=== PATIENT | female | born 1955 | race Caucasian/White ===

== ENCOUNTER 2024-07-24 21:50 | Emergency (ER) | payer OTHER ==
[~2024-07-24] VITALS: Ht 162.6 cm; Wt 68.0 kg
[2024-07-24 21:51] VITALS: TEMP 98.3
[2024-07-24] MEDS ORDERED: PANTOPRAZOLE 40 MG VIAL ONE (22:45)
[2024-07-24] MEDS: IV NS 0.9% 1,000 ML BAG IV ONE (22:45)
[2024-07-24] MEDS ORDERED: ONDANSETRON HCL/PF 4 MG/2 ML VIAL ONE (22:45)
[2024-07-24] MEDS: ONDANSETRON HCL/PF 4 MG/2 ML VIAL IVP ONE (22:46)
[2024-07-24] MEDS: PANTOPRAZOLE 40 MG VIAL IV ONE (22:47)
[2024-07-24] MEDS ORDERED: HYDROMORPHONE 1 MG/1 ML DISP.SYRIN ONE (23:01)
[2024-07-24 23:02] LABS: BASOPHILS % (AUTO) 0.6 % (0.0-2.0); EOSINOPHILS # (AUTO) 0.2 K/uL (0.0-0.7); EOSINOPHILS % (AUTO) 2.7 % (0.0-6.0); HEMATOCRIT 39 % (33-45); HEMOGLOBIN 12.8 g/dL (11.5-14.8); LYMPHOCYTES # (AUTO) 1.2 K/uL (0.8-4.8); LYMPHOCYTES % (AUTO) 19.2 % (20.0-44.0); MEAN CORPUSCULAR HEMOGLOBIN 27 PG (26.0-33.0); MEAN CORPUSCULAR HGB CONC 33 g/dl (31.0-36.0); MEAN CORPUSCULAR VOLUME 82 fL (82-100); MONOCYTES % (AUTO) 15.5 % (2.0-12.0); PLATELET COUNT (AUTO) 226 K/uL (150-450); RED BLOOD CELL COUNT(AUTO) 4.71 MIL/uL (4.0-5.2); RED CELL DISTRIBUTION WIDTH 12.6 % (11.5-15.0); WHITE BLOOD COUNT (AUTO) 6.5 K/uL (4.3-11.0)
[2024-07-24] MEDS: HYDROMORPHONE INJ 2 MG/ML DISP.SYRIN IV ONE (23:04)
[2024-07-24 23:17] LABS: ALBUMIN 3.7 g/dL (3.4-5.0); BILIRUBIN,DIRECT 0.2 mg/dL (0.0-0.2); BILIRUBIN,TOTAL 0.8 mg/dL (0.2-1.0); CALCIUM, SERUM 9.1 mg/dL (8.5-10.1); CREATININE 0.7 mg/dL (0.6-1.3); TOTAL PROTEIN, SERUM 7.8 g/dL (6.4-8.2)
[2024-07-24 23:20] LABS: APPEARANCE,URINE CLEAR (CLEAR); BILIRUBIN,URINE NEGATIVE (NEGATIVE); BLOOD, URINE 2+ Ery/uL (NEGATIVE); COLOR,URINE YELLOW (YELLOW); KETONES,URINE 2+ mg/dL (NEGATIVE); LEUKOCYTE ESTERASE ,URINE NEGATIVE (NEGATIVE); NITRITE, URINE NEGATIVE (NEGATIVE); PH,URINE 7.5 (5.0-8.0); PROTEIN,URINE 1+ mg/dl (NEGATIVE); UGLUCOSE NEGATIVE (NEGATIVE); UROBILINOGEN,URINE 0.2 EU/dL (0.2)
[2024-07-24 23:24] LABS: POTASSIUM 3.3 mmol/L (3.5-5.1)
[2024-07-25 00:29] LABS: ADD URINE CULTURE NO; BACTERIA,URINE Rare /HPF (None Seen); SQUAMOUS EPITHELIAL CELL,UR Few /HPF (None Seen); WBC,URINE 0-2 /HPF (0-3)
[2024-07-25 01:22] LABS: EOSINOPHILS % (MANUAL) 2 % (0-4); LYMPHOCYTES % (MANUAL) 17 % (16-48); MONOCYTES % (MANUAL) 15 % (0-11.0); NEUTROPHILS % (MANUAL) 66 (42-76); PLATELET ESTIMATE ADEQUATE
[2024-07-25 01:35] VITALS: BP 169/95; O2SAT 97
[2024-07-25] MEDS ORDERED: ONDANSETRON HCL/PF 4 MG/2 ML VIAL ONE (01:46)
[2024-07-25] MEDS: ONDANSETRON HCL/PF - ER 4 MG/2 ML VIAL IV ONE (01:49)
[2024-07-25] MEDS ORDERED: HYDROMORPHONE 1 MG/1 ML DISP.SYRIN ONE (03:19)
[2024-07-25] MEDS: HYDROMORPHONE 1 MG/1 ML DISP.SYRIN IV ONE (03:23)
== END 2024-07-25 04:02 | disposition short-term general hospital (02) ==
LOC: ER 21:51
DX: K21.00 Gastro-esophageal reflux disease with esophagitis, without bleeding (principal); R10.10 Upper abdominal pain, unspecified; E87.1 Hypo-osmolality and hyponatremia; E03.9 Hypothyroidism, unspecified
CPT/HCPCS: 99285; 74176; 96374; 96375; 71045; 96361; 93005; 85025; 80048; 83690; 80076; 81001; 36415; 96376; J2405 ×3; J7030; J2470; J1171 ×2